=== PATIENT | female | born 1960 | race Hispanic/Latino ===

== ENCOUNTER → 2016-12-24 | Outpatient (CLI) | payer OTHER ==
[~2016-12-24] VITALS: Ht 147.3 cm; Wt 72.6 kg
[~2016-12-24] MED LIST: CIPR500T89 PO; FISH100049 PO; HYDR25TAB PO; LIDOCAINE 2% INJ 100 MG/5 ML SDV (FOR ANES.) As Ordered ONE; LISI-538 PO; LISI20TA PO; NS 1,000 ML IV SCH; PERCOCET PO; PROPOFOL 500 MG/50 ML VIAL As Ordered ONE
--- NOTE | 2016-12-24 11:02 | ROOR ---
Patient Name: Rosalie Fletcher Procedure Date: 12/24/2016 10:46 AM Date of : 1960 Age: 56 Room: [facility] Gender: Female Note Status: Finalized Procedure: Upper GI endoscopy Indications: Heartburn Providers: Sunday Zabala MD Referring MD: MANOJ ARANDA MD Requesting Provider: Medicines: Monitored Anesthesia Care Complications: No immediate complications. Procedure: Pre-Anesthesia Assessment: - The heart rate, respiratory rate, oxygen saturations, blood pressure, adequacy of pulmonary ventilation, and response to care were monitored throughout the procedure. The Endoscope was introduced through the mouth, and advanced to the second part of duodenum. The upper GI endoscopy was accomplished without difficulty. The patient tolerated the procedure well. Findings: The Z-line was regular and was found 35 cm from the incisors. No other significant abnormalities were identified in a careful examination of the stomach. The exam of the duodenum was otherwise normal. Impression: - Z-line regular, 35 cm from the incisors. - No specimens collected. - The examination was otherwise normal. Recommendation: - Patient has a contact number available for emergencies. The signs and symptoms of potential delayed complications were discussed with the patient. Return to normal activities tomorrow. Written discharge instructions were provided to the patient. - High fiber diet. - Discharge patient to home. - Follow an antireflux regimen. - Continue present medications. - Return to referring physician. - The findings and recommendations were discussed with the patient's family. Sunday Zabala MD Sunday Zabala MD 12/24/2016 11:02:01 AM This report has been signed electronically. Number of Addenda: 0 Note Initiated On: 12/24/2016 10:46 AM Estimated Blood Loss: Estimated blood loss: none.
--- NOTE | 2016-12-24 11:12 | ROOR ---
Patient Name: Rosalie Fletcher Procedure Date: 12/24/2016 10:47 AM Date of : 1960 Age: 56 Room: [facility] Gender: Female Note Status: Finalized Procedure: Colonoscopy to Cecum Indications: Screening for colorectal malignant neoplasm Providers: Sunday Zabala MD Referring MD: MANOJ ARANDA MD Requesting Provider: Medicines: Monitored Anesthesia Care Complications: No immediate complications. Procedure: Pre-Anesthesia Assessment: - The heart rate, respiratory rate, oxygen saturations, blood pressure, adequacy of pulmonary ventilation, and response to care were monitored throughout the procedure. The Colonoscope was introduced through the anus and advanced to the cecum, identified by appendiceal orifice and ileocecal valve. The colonoscopy was performed without difficulty. The patient tolerated the procedure well. The quality of the bowel preparation was excellent. Findings: The perianal and digital rectal examinations were normal. Non-bleeding internal hemorrhoids were found during retroflexion. The hemorrhoids were small and Grade I (internal hemorrhoids that do not prolapse). No other significant abnormalities were identified in a careful examination of the remainder of the colon. The exam was otherwise without abnormality on direct and retroflexion views. Impression: - Non-bleeding internal hemorrhoids. - The examination was otherwise normal on direct and retroflexion views. - No specimens collected. - The exam was otherwise normal to the cecum. Recommendation: - Patient has a contact number available for emergencies. The signs and symptoms of potential delayed complications were discussed with the patient. Return to normal activities tomorrow. Written discharge instructions were provided to the patient. - High fiber diet. - Discharge patient to home. - Continue present medications. - Repeat colonoscopy in 10 years for screening purposes. - Return to referring physician. - The findings and recommendations were discussed with the patient's family. Sunday Zabala MD Sunday Zabala MD 12/24/2016 11:12:08 AM This report has been signed electronically. Number of Addenda: 0 Note Initiated On: 12/24/2016 10:47 AM Estimated Blood Loss: Estimated blood loss: none.
[2016-12-24 11:40] VITALS: BP 166/101
== END | disposition home or self-care (01) ==
LOC: M OPP 09:37
PROVIDERS: ATTEND Internal Medicine Gastroenterology
DX: Z12.11 Encounter for screening for malignant neoplasm of colon (principal); K64.0 First degree hemorrhoids; R12 Heartburn; I10 Essential (primary) hypertension; Z79.899 Other long term (current) drug therapy
CPT/HCPCS: 43235; 99156; 99157; G0121

== ENCOUNTER → 2017-04-13 | Day surgery (SDC) | payer OTHER ==
[~2017-04-13] VITALS: Ht 147.3 cm; Wt 68.0 kg
[~2017-04-13] MED LIST changes: +ALBU17IN2 INH; +BUPIVACAINE HCL 0.5% 30 ML VIAL As Ordered ONE; +CIPR-249 PO; -CIPR500T89 PO; +LIDOCAINE 1% MDV 20ML VIAL As Ordered ONE; +LR 1,000 ML IV SCH; +MIDAZOLAM INJ 2 MG/2 ML VIAL (J2250) As Ordered ONE; -NS 1,000 ML IV SCH; +ONDANSETRON 4MG/2ML VIAL (J2405) As Ordered ONE; +PROPOFOL 200 MG/20 ML VIAL As Ordered ONE; -PROPOFOL 500 MG/50 ML VIAL As Ordered ONE; +dexameTHASONE 4 MG/ML 1ML VIAL (J1100) As Ordered ONE; +fentaNYL 100 MCG/2 ML INJECTION (J3010) As Ordered ONE
--- NOTE | 2017-04-13 08:52 | RO ---
DATE OF SURGERY: 04/13/2017 PREOPERATIVE DIAGNOSES: Right foot bunion. POSTOPERATIVE DIAGNOSES: Right foot bunion. PROCEDURE: Right foot bunionectomy with 1st metatarsal osteotomy. SURGEON: Ramon Rizo DPM EMBEDDED FIRMWARE DEVELOPER: None ANESTHESIA: Monitored anesthesia care with preoperative injection of 20 mL of a 1:1 mixture of 1% lidocaine plain and 0.5% Marcaine plain. ESTIMATED BLOOD LOSS: Minimal. MATERIALS: Arthrex 3.5 headless screw, #3-0 Vicryl, #4-0 Vicryl, and #4-0 nylon. INJECTABLES: 1 mL Decadron. COMPLICATIONS: None. CONDITION: Stable. Rosalie Fletcher is a 56-year-old female who presents to [facility] with complaints of painful bunion to her right foot. She presents today for surgical correction. The patient side and site were identified and marked in the preoperative holding area. Consent was reviewed and obtained. All risks, complications, and alternatives to the procedure were explained to the patient in detail. All questions were answered. DESCRIPTION OF PROCEDURE: The patient was brought to the operating room and placed on the operating room table in supine position. Monitored anesthesia care was delivered by the anesthesia team. A preoperative injection of 20 mL of 1:1 mixture of 1% lidocaine plain and 0.5% Marcaine plain were injected to the right foot. The right foot was prepped and draped in the normal sterile fashion. The patient received Ancef preoperatively. A tourniquet was applied to the right ankle and inflated at 250 mmHg. A dorsomedial incision was drawn and carried through with a #15 blade. Dissection was carried down to the metatarsophalangeal joint. The capsule was identified. A T capsulotomy was performed, exposing the metatarsal head. Following this, a lateral release was performed, releasing the adductor tendon, sesamoidal ligaments, and lateral capsule. McGlamry elevator was used to free the plantar structures. A sagittal saw was used to remove the medial and dorsal eminence from the metatarsal head, and an osteotomy was performed of the metatarsal head, transposing it laterally. This was fixated with an Arthrex 3.5 headless screw. The remaining bone ledge was removed with the sagittal saw, and the site was smoothed with rasp. The site was irrigated with normal saline. A small wedge of medial capsule was removed, and capsular repair was performed with #3-0 Vicryl, subcutaneous closure with #4-0 Vicryl, and skin closure with #4-0 nylon. 1 mL of Decadron was injected postoperatively. Sterile dressings were applied. Tourniquet was deflated. The patient was brought to postanesthesia care unit (PACU) with vital signs stable and neurovascular status intact. She will be partial weightbearing to her right foot. She will followup in my office in 2 days.
[2017-04-13 09:28] VITALS: BP 138/78
== END | disposition home or self-care (01) ==
LOC: M SDC 06:07
PROVIDERS: ATTEND Podiatrist Foot & Ankle Surgery
DX: M21.611 Bunion of right foot (principal); I10 Essential (primary) hypertension; Z79.899 Other long term (current) drug therapy; Z90.710 Acquired absence of both cervix and uterus; Z87.442 Personal history of urinary calculi; Z96.0 Presence of urogenital implants
CPT/HCPCS: 28296; 88300; 97116; C1776; J0690; J1100; J2250; J2405; J3010

== ENCOUNTER → 2018-03-03 | Day surgery (SDC) | payer OTHER ==
[~2018-03-03] MED LIST changes: -ALBU17IN2 INH; -BUPIVACAINE HCL 0.5% 30 ML VIAL As Ordered ONE; -CIPR-249 PO; -FISH100049 PO; -HYDR25TAB PO; -LIDOCAINE 1% MDV 20ML VIAL As Ordered ONE; +LIDOCAINE 2% INJ 100 MG/5 ML SDV (FOR ANES.) As Ordered; -LIDOCAINE 2% INJ 100 MG/5 ML SDV (FOR ANES.) As Ordered ONE; -LISI-538 PO; -LISI20TA PO; +LR 1,000 ML IV; -LR 1,000 ML IV SCH; +MIDAZOLAM INJ 2 MG/2 ML VIAL (J2250) As Ordered; -MIDAZOLAM INJ 2 MG/2 ML VIAL (J2250) As Ordered ONE; +ONDANSETRON 4MG/2ML VIAL (J2405) As Ordered; -ONDANSETRON 4MG/2ML VIAL (J2405) As Ordered ONE; -PERCOCET PO; +PROPOFOL 200 MG/20 ML VIAL As Ordered; -PROPOFOL 200 MG/20 ML VIAL As Ordered ONE; +ceFAZolin 2 GM/D5W 50 ML IV BAG (J0690 PER 500MG) As Ordered; -dexameTHASONE 4 MG/ML 1ML VIAL (J1100) As Ordered ONE; +fentaNYL 100 MCG/2 ML INJECTION (J3010) As Ordered; -fentaNYL 100 MCG/2 ML INJECTION (J3010) As Ordered ONE
[2018-03-03] MEDS: BUPIVACAINE HCL 0.5% 10 ML VIAL As Ordered ×2 (13:53)
[2018-03-03] MEDS: LIDOCAINE 1% MDV 20ML VIAL As Ordered ×2 (13:53)
[2018-03-03] MEDS: dexameTHASONE 4 MG/ML 1ML VIAL (J1100) As Ordered ×2 (14:36)
== END | disposition home or self-care (01) ==
LOC: M SDC 11:39
DX: M20.12 Hallux valgus (acquired), left foot (principal); I10 Essential (primary) hypertension; Z79.899 Other long term (current) drug therapy
CPT/HCPCS: 28296

== ENCOUNTER → 2019-02-24 | Outpatient (CLI) | payer OTHER ==
[~2019-02-24] MED LIST changes: +ALBU17IN2 INH; +CETI10TA; +CIPR-249 PO; +FISH100049 PO; +HYDR-2541 PO; -LIDOCAINE 2% INJ 100 MG/5 ML SDV (FOR ANES.) As Ordered; +LISI-538 PO; +LISI20TA PO; -LR 1,000 ML IV; -MIDAZOLAM INJ 2 MG/2 ML VIAL (J2250) As Ordered; -ONDANSETRON 4MG/2ML VIAL (J2405) As Ordered; +PERCOCET PO; +POTA20TA6; -PROPOFOL 200 MG/20 ML VIAL As Ordered; -ceFAZolin 2 GM/D5W 50 ML IV BAG (J0690 PER 500MG) As Ordered; -fentaNYL 100 MCG/2 ML INJECTION (J3010) As Ordered
--- NOTE | 2019-02-24 16:19 | REP ---
Clinical: Chest and abdominal pain. Technique: Axial noncontrast images from the through exit inlet to the upper abdomen with coronal and sagittal re-formations. Findings: The bilateral lung kyle are well-aerated and clear. No focal consolidation, nodule or mass lesion. No pleural effusion. No pneumothorax. Tracheobronchial tree is patent. No obvious adenopathy. The mediastinum demonstrates relatively normal thoracic aorta, pulmonary vasculature and heart/pericardium. Minimal atherosclerotic changes to the coronary arteries noted. No pericardial effusion. Musculoskeletal structures are intact without focal osseous abnormality. Limited upper abdomen demonstrates normal bilateral adrenal glands. Impression: No acute mediastinal or pleuroparenchymal process appreciated. Electronically Signed by Adrian Balbuena MD 02/24/2019 04:11 P
== END ==
LOC: M RAD 15:49
PROVIDERS: ATTEND Family Medicine
DX: R10.11 Right upper quadrant pain (principal); R07.89 Other chest pain

== ENCOUNTER 2020-05-30 12:14 | Emergency (ER) | payer OTHER ==
[~2020-05-30] VITALS: Ht 147.3 cm; Wt 75.4 kg
[~2020-05-30 12:14] MED LIST changes: -LISI20TA PO; +LISI20TA35 PO
[2020-05-30] MEDS ORDERED: LOSA25TA14 (12:37)
[2020-05-30] MEDS ORDERED: AMLO1TAB25 (12:37)
--- NOTE | 2020-05-30 13:23 | REPVR ---
PROCEDURE INFORMATION: Exam: XR Lumbosacral Spine, 4 or 5 Views Exam date and time: 05/30/2020 12:59 PM Age: 60 years old Clinical indication: Low back pain; Additional info: Lower back pain TECHNIQUE: Imaging protocol: XR of the lumbosacral spine, 4 or 5 views. COMPARISON: CT ABD PELVIS WITH CONTRAST 09/15/2015 11:28 AM FINDINGS: Vertebrae: Mild degenerative endplate changes. No acute fracture is identified. Normal alignment. Soft tissues: Unremarkable. IMPRESSION: Mild degenerative endplate changes. Electronically signed by: Amanda Nieto On 05/30/2020 13:23:46 PM
[2020-05-30 14:04] VITALS: BP 147/82
== END 2020-05-30 14:00 | disposition home or self-care (01) ==
LOC: M ED 12:14
DX: M54.5 Low back pain (principal); I10 Essential (primary) hypertension; E78.5 Hyperlipidemia, unspecified; Z79.899 Other long term (current) drug therapy

== ENCOUNTER → 2022-06-13 | Outpatient (CLI) | payer OTHER ==
[~2022-06-13] MED LIST changes: +AMLO1TAB25; +GASTROGRAFIN SOLUTION 30ML (Q9963) As Ordered ONE; +ISOVUE-370 76% 100ML VIAL As Ordered ONE; -LISI-538 PO; +LISI20TA33 PO; +LOSA25TA13; +POTA-151; -POTA20TA6
== END ==
LOC: M RAD 08:54
PROVIDERS: ATTEND Nurse Practitioner Primary Care
DX: R10.11 Right upper quadrant pain (principal)
CPT/HCPCS: 74177; Q9963; Q9967

== ENCOUNTER → 2023-01-20 | Outpatient (CLI) | payer OTHER ==
[~2023-01-20] MED LIST changes: -GASTROGRAFIN SOLUTION 30ML (Q9963) As Ordered ONE; -ISOVUE-370 76% 100ML VIAL As Ordered ONE
== END ==
LOC: M WHC 14:47
PROVIDERS: ATTEND Student in an Organized Health Care Education/Training Program
DX: Z12.31 Encounter for screening mammogram for malignant neoplasm of breast (principal)

== ENCOUNTER 2023-09-26 10:59 | Emergency (ER) | payer OTHER ==
[~2023-09-26] VITALS: Ht 147.3 cm; Wt 68.2 kg
[2023-09-26] MEDS ORDERED: FISH500C (11:13)
[2023-09-26 12:01] LABS: RSV AMPLIFICATION NEGATIVE (NEGATIVE)
[2023-09-26 12:25] VITALS: BP 143/95; TEMP 98.7; O2SAT 98
== END 2023-09-26 12:37 | disposition home or self-care (01) ==
LOC: M ED 10:59
DX: J09.X2 Influenza due to identified novel influenza A virus with other respiratory manifestations (principal); I10 Essential (primary) hypertension; Z79.899 Other long term (current) drug therapy

== ENCOUNTER → 2024-05-20 | Outpatient (CLI) | payer OTHER ==
[~2024-05-20] MED LIST changes: +FISH500C; +ISOVUE-370 76% 100ML VIAL As Ordered ONE
== END ==
LOC: M RAD 13:26
PROVIDERS: ATTEND Family Medicine
DX: R22.1 Localized swelling, mass and lump, neck (principal)
CPT/HCPCS: 70491; Q9967

== ENCOUNTER → 2024-07-18 | Outpatient (CLI) | payer OTHER ==
[~2024-07-18] MED LIST changes: -ISOVUE-370 76% 100ML VIAL As Ordered ONE
== END ==
LOC: M WHC 10:53
PROVIDERS: ATTEND Nurse Practitioner Family
DX: Z12.31 Encounter for screening mammogram for malignant neoplasm of breast (principal); R92.323 Mammographic fibroglandular density, bilateral breasts

== ENCOUNTER → 2024-09-12 | Outpatient (CLI) | payer OTHER | LOC: M RAD 08:03 | PROVIDERS: ATTEND Otolaryngology | DX: J32.4 Chronic pansinusitis (principal) ==

== ENCOUNTER 2025-01-12 07:28 | Day surgery (SDC) | payer OTHER ==
[~2025-01-12] VITALS: Ht 147.3 cm; Wt 75.9 kg
[~2025-01-12 07:28] MED LIST changes: +AMLO1TAB25 PO; +B-12100010 PO; +LOSA50TA28 PO; +OMEG10002 PO; +VITA100093 PO
[2025-01-12 08:22] LABS: BLOOD UREA NITROGEN 13 MG/DL (9-23); CALCIUM LEVEL 9.2 MG/DL (8.3-10.6); CARBON DIOXIDE LEVEL 27 MMOL/L (20-31); CHLORIDE LEVEL 107 MMOL/L (98-107); CREATININE FOR GFR 0.59 MG/DL (0.55-1.30); GLOMERULAR FILTRATION RATE > 90.0 (>45); GLUCOSE, FASTING 112 MG/DL (74-106); SODIUM LEVEL 144 MMOL/L (136-145)
[2025-01-12] MEDS ORDERED: LR 1,000 ML IV SCH ×2 (08:35→14:25)
[2025-01-12] MEDS ORDERED: ACETAMINOPHEN 1000MG/100ML IV BAG As Ordered ONE (08:38)
[2025-01-12] MEDS ORDERED: LIDOCAINE 2% 100MG/5ML SDV (FOR ANES.) As Ordered ONE (08:38)
[2025-01-12] MEDS ORDERED: propofoL 200 MG/20 ML VIAL As Ordered ONE (08:38)
[2025-01-12] MEDS ORDERED: SUGAMMADEX SODIUM 500 MG/5 ML VIAL (BRIDION) As Ordered ONE (08:38)
[2025-01-12] MEDS ORDERED: ROCURONIUM BROMIDE 50MG/5ML VIAL As Ordered ONE (08:38)
[2025-01-12] MEDS ORDERED: HYDROmorphone HCL 2MG/ML 1ML VIAL As Ordered ONE (08:39)
[2025-01-12] MEDS ORDERED: MIDAZOLAM INJ 2MG/2ML VIAL As Ordered ONE (08:39)
[2025-01-12] MEDS ORDERED: ONDANSETRON 4MG 2ML VIAL As Ordered ONE (08:39)
[2025-01-12] MEDS ORDERED: fentaNYL 100 MCG/2 ML INJECTION As Ordered ONE (08:40)
[2025-01-12] MEDS: SCOPOLAMINE 1MG TRANSDERMAL PATCH TOP ONE (09:04)
[2025-01-12] MEDS: MIDAZOLAM INJ 2MG/2ML VIAL IV ONE (09:05)
[2025-01-12] MEDS ORDERED: SODIUM CHLORIDE 0.9% NASAL GEL 15GM (AYR) As Ordered ONE (09:39)
[2025-01-12] MEDS ORDERED: LABETALOL 100MG/20ML VIAL As Ordered ONE (10:00)
[2025-01-12] MEDS: METHYLENE BLUE 0.5% (5MG/ML) 10 ML AMP (PROVAYBLUE) As Ordered ONE (11:15)
[2025-01-12] MEDS: EPINEPHrine 1MG/ML INJ 30ML MD-VIAL As Ordered ONE (11:16)
[2025-01-12] MEDS ORDERED: PHENYLephrine 500MCG 5ML (100MCG/ML) SYRINGE As Ordered ONE (11:39)
[2025-01-12] MEDS: LIDOCAINE W/EPINEPHRINE 1% 20ML VIAL As Ordered ONE (13:50)
[2025-01-12] MEDS ORDERED: fentaNYL 100 MCG/2 ML INJECTION IV PRN (14:25)
[2025-01-12] MEDS ORDERED: HYDROMORPHONE HCL 0.5 MG/ 0.5 ML SYRINGE IV PRN (14:25)
[2025-01-12] MEDS: ONDANSETRON 4MG 2ML VIAL IV PRN (14:33)
[2025-01-12] MEDS: METOCLOPRAMIDE INJ 10MG/2ML VIAL IV STA (16:29)
[2025-01-12 17:28] VITALS: BP 145/82; TEMP 97.7; O2SAT 96
== END 2025-01-12 17:41 | disposition home or self-care (01) ==
LOC: M SDC 07:28
PROVIDERS: ATTEND Otolaryngology
DX: J32.0 Chronic maxillary sinusitis (principal); J32.2 Chronic ethmoidal sinusitis; J32.1 Chronic frontal sinusitis; J31.0 Chronic rhinitis; J33.8 Other polyp of sinus; I10 Essential (primary) hypertension; Z79.899 Other long term (current) drug therapy
CPT/HCPCS: 31255; 31267; 31296; 36415; 61782; 80048; 88305; 93005; C2625; J0131; J0171; J1100; J1171; J2250; J2371; J2405; J2765; J3010; Q9968

== ENCOUNTER 2025-05-14 12:46 | Emergency (ER) | payer OTHER ==
[~2025-05-14] VITALS: Ht 147.3 cm; Wt 71.5 kg
[2025-05-14 12:51] VITALS: TEMP 98.7
[2025-05-14] MEDS: LOSARTAN 50 MG TABLET PO ONE (13:37)
[2025-05-14] MEDS: amLODIPine 10 MG TAB PO ONE (13:37)
[2025-05-14] MEDS: ACETAMINOPHEN 325 MG TAB PO ONE (13:37)
[2025-05-14 15:05] VITALS: BP 172/122; O2SAT 96
== END 2025-05-14 15:39 | disposition home or self-care (01) ==
LOC: M ED 12:46
DX: S63.501A Unspecified sprain of right wrist, initial encounter (principal); W01.0XXA Fall on same level from slipping, tripping and stumbling without subsequent striking against object, initial encounter; Y92.009 Unspecified place in unspecified non-institutional (private) residence as the place of occurrence of the external cause; Y93.9 Activity, unspecified; Y99.9 Unspecified external cause status; I10 Essential (primary) hypertension; E03.9 Hypothyroidism, unspecified; J30.89 Other allergic rhinitis; Z87.442 Personal history of urinary calculi; Z79.899 Other long term (current) drug therapy

== ENCOUNTER 2025-05-16 11:36 | Emergency (ER) | payer OTHER ==
[~2025-05-16] VITALS: Ht 147.3 cm; Wt 77.1 kg
[2025-05-16 11:39] VITALS: TEMP 97.6
[2025-05-16 16:00] VITALS: O2SAT 95
[2025-05-16 16:26] VITALS: BP 150/100
== END 2025-05-16 16:41 | disposition home or self-care (01) ==
LOC: M ED 11:36
DX: S01.01XA Laceration without foreign body of scalp, initial encounter (principal); W01.0XXA Fall on same level from slipping, tripping and stumbling without subsequent striking against object, initial encounter; Y92.9 Unspecified place or not applicable; Y93.9 Activity, unspecified; Y99.9 Unspecified external cause status; I10 Essential (primary) hypertension; E78.5 Hyperlipidemia, unspecified; M54.50 Low back pain, unspecified; J30.89 Other allergic rhinitis; Z87.442 Personal history of urinary calculi; Z79.899 Other long term (current) drug therapy